=== PATIENT | female | born 1955 | race Caucasian/White ===

== ENCOUNTER → 2025-02-06 | Outpatient (CLI) | payer MEDICARE, OTHER, SELFPAY ==
--- NOTE | 2025-02-06 07:17 | US_ITS ---
PROCEDURE: ABD LIMITED W/ ELASTOGRAPHY REASON FOR EXAM: ZULY LIVER COMPARISON: None. TECHNIQUE: Right upper quadrant abdominal ultrasound. [facility] ElastQ Imaging shear wave elastography for non-invasive assessment of liver tissue stiffness. [facility] EPIQ Elite. FINDINGS: LIVER: Size: Unremarkable Length: 15.9 cm Echotexture: Normal Contour: Normal Lesions: There is a 1.1 cm x 1.3 cm x 0.8 cm cyst in the left lobe of the liver. There is also evidence of a 1.4 cm x 2 cm x 1.3 cm cyst in the right lobe of the liver. Elastography: EQI Med: 5.8 kPa EQI Med Brian: 1.38 m/s IQR/Med: 22.5 %* GALLBLADDER: Surgically absent. COMMON BILE DUCT: Normal . PANCREAS: Normal Right kidney: It measures 11.5 cm 5.7 cm 4.7 cm. Renal cortex measures 1.4 cm. There is evidence of a known solid mass in the superior pole of the kidney measuring 2.2 cm x 2.3 cm x 2 cm. US/ABD Limited w/ Elastography IMPRESSION: NO TO MILD HEPATIC FIBROSIS Known solid mass in the upper pole of the right kidney. Right and left hepatic cysts. Reference Values: SRU <1.37 m/s (5.7kPa): No to mild fibrosis 1.37 m/s - 2.2 m/s: Moderate to severe fibrosis >2.2 m/s (15kPa): Significant fibrosis / cirrhosis METAVIR Score F2 or higher: 1.34 m/s (5.7kPa) F3 or higher: 1.55 m/s (7.3kPa) F4: 1.80 m/s (10kPa) * If the IQR/Med is >30%, the variance in the measurements is a large and the a ccuracy of the measurement may be in question. Reading Location: [id number]
== END | disposition home or self-care (01) ==
LOC: US 07:12
PROVIDERS: PCP Internal Medicine; Referring Provider Internal Medicine Gastroenterology; Visit Provider Internal Medicine Gastroenterology
DX: K76.0 Fatty (change of) liver, not elsewhere classified (principal); R79.89 Other specified abnormal findings of blood chemistry
CPT/HCPCS: 76705; 76981